=== PATIENT | male | born 1935 | race Two or more races ===

== ENCOUNTER → 2018-12-15 11:49 | Outpatient (CLI) | payer OTHER | END | disposition home or self-care (01) | LOC: LAB 11:49 | DX: Z51.81 Encounter for therapeutic drug level monitoring (principal); R31.0 Gross hematuria ==

== ENCOUNTER 2018-12-15 13:38 | Outpatient (CLI) | payer OTHER | END 2018-12-15 15:52 | disposition home or self-care (01) | LOC: TOM 13:38 | DX: N40.1 Benign prostatic hyperplasia with lower urinary tract symptoms (principal); R31.0 Gross hematuria; F52.21 Male erectile disorder | CPT/HCPCS: 74178; Q9965 ==

== ENCOUNTER 2019-04-20 10:48 | Outpatient (CLI) | payer OTHER | END 2019-04-20 10:52 | disposition home or self-care (01) | LOC: TOM 10:48 | DX: R31.0 Gross hematuria (principal); N20.1 Calculus of ureter; N40.1 Benign prostatic hyperplasia with lower urinary tract symptoms; F52.21 Male erectile disorder ==

== ENCOUNTER 2020-03-07 19:43 | Emergency (ER) | payer OTHER ==
[~2020-03-07] VITALS: Ht 190.5 cm; Wt 112.0 kg
[2020-03-07] MEDS ORDERED: TAMSULOSIN HCL0.4 MG PO (19:53)
[2020-03-07] MEDS ORDERED: FINASTERIDE5 MG PO (19:54)
[2020-03-07] MEDS ORDERED: PRADAXA150 MG PO (19:54)
[2020-03-07] MEDS ORDERED: ROSUVASTATIN CAL5 MG PO (19:54)
[2020-03-07] MEDS ORDERED: BUMETANIDE1 MG PO (19:54)
[2020-03-07] MEDS ORDERED: CRESTOR5 MG PO (19:55)
[2020-03-07] MEDS ORDERED: PRADAXA150 MG (19:56)
== END 2020-03-07 23:06 | disposition home or self-care (01) ==
LOC: ER 19:43
DX: N39.0 Urinary tract infection, site not specified (principal); R31.0 Gross hematuria; N40.1 Benign prostatic hyperplasia with lower urinary tract symptoms; R33.8 Other retention of urine

== ENCOUNTER 2020-03-19 16:19 | Outpatient (CLI) | payer OTHER ==
[~2020-03-19 16:19] MED LIST: BUMETANIDE1 MG PO; CRESTOR5 MG PO; FINASTERIDE5 MG PO; PRADAXA150 MG; PRADAXA150 MG PO; ROSUVASTATIN CAL5 MG PO; TAMSULOSIN HCL0.4 MG PO
== END 2020-03-19 16:30 | disposition home or self-care (01) ==
LOC: LAB 16:19
PROVIDERS: ATTEND Urology
DX: R31.0 Gross hematuria (principal); N20.1 Calculus of ureter; N40.1 Benign prostatic hyperplasia with lower urinary tract symptoms; F52.21 Male erectile disorder

== ENCOUNTER 2020-05-08 12:00 | Emergency (ER) | payer OTHER ==
[~2020-05-08] VITALS: Ht 190.5 cm; Wt 112.0 kg
[2020-05-08] MEDS ORDERED: ULTRAM50 MG PO (14:11)
[2020-05-08] MEDS ORDERED: SKELAXIN800 MG PO (14:11)
[2020-05-08] MEDS ORDERED: DICLOFENAC POTA50 MG PO (14:11)
== END 2020-05-08 14:00 ==
LOC: ER 12:00
DX: M54.5 Low back pain (principal)

== ENCOUNTER 2020-05-15 15:54 | Outpatient (CLI) | payer OTHER ==
[~2020-05-15 15:54] MED LIST changes: +DICLOFENAC POTA50 MG PO; +SKELAXIN800 MG PO; +ULTRAM50 MG PO
== END 2020-05-15 18:00 | disposition home or self-care (01) ==
LOC: LAB 15:54
PROVIDERS: ATTEND Physical Medicine & Rehabilitation
DX: R06.02 Shortness of breath (principal); Z20.828 Contact with and (suspected) exposure to other viral communicable diseases; Z03.818 Encounter for observation for suspected exposure to other biological agents ruled out

== ENCOUNTER → 2020-05-19 11:26 | Outpatient (CLI) | payer OTHER | END | disposition home or self-care (01) | LOC: LAB 11:26 | PROVIDERS: ATTEND Internal Medicine | DX: I11.9 Hypertensive heart disease without heart failure (principal); E78.2 Mixed hyperlipidemia; D63.8 Anemia in other chronic diseases classified elsewhere ==

== ENCOUNTER 2020-06-19 17:14 | Outpatient (CLI) | payer OTHER | END 2020-06-19 17:19 | disposition home or self-care (01) | LOC: LAB 17:14 | PROVIDERS: ATTEND Physical Medicine & Rehabilitation | DX: R05 Cough (principal); Z03.818 Encounter for observation for suspected exposure to other biological agents ruled out; R50.9 Fever, unspecified; R06.1 Stridor ==

== ENCOUNTER 2020-07-27 13:55 | Emergency (ER) | payer OTHER ==
[~2020-07-27] VITALS: Ht 190.5 cm; Wt 110.2 kg
[2020-07-27] MEDS ORDERED: VITAMIN D3-ALO1 EACH PO (17:58)
[2020-07-27] MEDS ORDERED: ACETAMINOPHEN650 M2 PO (17:58)
[2020-07-27] MEDS ORDERED: VITAMIN C WIT1000 MG PO (17:58)
== END 2020-07-27 17:58 | disposition home or self-care (01) ==
LOC: ER 13:55
DX: B34.9 Viral infection, unspecified (principal); R05 Cough; Z20.828 Contact with and (suspected) exposure to other viral communicable diseases

== ENCOUNTER 2020-09-10 15:07 | Emergency (ER) | payer OTHER ==
[~2020-09-10] VITALS: Ht 190.5 cm; Wt 110.2 kg
[~2020-09-10 15:07] MED LIST changes: +ACETAMINOPHEN650 M2 PO; +VITAMIN C WIT1000 MG PO; +VITAMIN D3-ALO1 EACH PO
[2020-09-10] MEDS ORDERED: PRADAXA150 MG PO (15:37)
== END 2020-09-11 00:35 | disposition left against medical advice (07) ==
LOC: ER 15:07
DX: N39.0 Urinary tract infection, site not specified (principal); R31.0 Gross hematuria; R33.8 Other retention of urine; M54.5 Low back pain; B34.9 Viral infection, unspecified; Z20.828 Contact with and (suspected) exposure to other viral communicable diseases; S16.1XXS Strain of muscle, fascia and tendon at neck level, sequela; X58.XXXS Exposure to other specified factors, sequela; A90 Dengue fever [classical dengue]

== ENCOUNTER 2020-10-16 15:31 | Outpatient (CLI) | payer OTHER | END 2020-10-16 15:43 | disposition home or self-care (01) | LOC: SONOGRAMA 15:31 | PROVIDERS: ATTEND Internal Medicine | DX: E04.2 Nontoxic multinodular goiter (principal); E03.8 Other specified hypothyroidism ==

== ENCOUNTER 2020-10-16 16:23 | Outpatient (CLI) | payer OTHER | END 2020-10-16 17:39 | disposition home or self-care (01) | LOC: LAB 16:23 | PROVIDERS: ATTEND Internal Medicine | DX: E03.8 Other specified hypothyroidism (principal) ==

== ENCOUNTER 2020-10-24 07:15 | Outpatient (CLI) | payer OTHER | END 2020-10-24 07:49 | disposition home or self-care (01) | LOC: NUCLEAR 07:15 | PROVIDERS: ATTEND Internal Medicine Cardiovascular Disease | DX: I20.8 Other forms of angina pectoris (principal); I48.20 Chronic atrial fibrillation, unspecified; I10 Essential (primary) hypertension | CPT/HCPCS: 78452; 93017; A9500; J0153 ==

== ENCOUNTER 2020-10-24 13:04 | Outpatient (CLI) | payer OTHER | END 2020-10-24 13:16 | disposition HB | LOC: RAD 13:04 | DX: M17.0 Bilateral primary osteoarthritis of knee (principal) ==

== ENCOUNTER 2020-11-06 15:07 | Outpatient (CLI) | payer OTHER | END 2020-11-06 15:10 | disposition home or self-care (01) | LOC: SONOGRAMA 15:07 | PROVIDERS: ATTEND Specialist | DX: R22.2 Localized swelling, mass and lump, trunk (principal) ==

== ENCOUNTER 2020-12-01 11:22 | Outpatient (CLI) | payer OTHER ==
[2020-12-02] MEDS ORDERED: BUMETANIDE1 MG (12:11)
[2020-12-02] MEDS ORDERED: ZIAC 5-6.25 MG1 EACH (12:11)
[2020-12-02] MEDS ORDERED: PRADAXA150 MG (12:11)
[2020-12-02] MEDS ORDERED: CALTRATE 600 +1 EACH (12:12)
[2020-12-02] MEDS ORDERED: CRESTOR5 MG (12:12)
== END 2020-12-01 11:29 | disposition home or self-care (01) ==
LOC: SONOGRAMA 11:22
PROVIDERS: ATTEND Pathology Anatomic Pathology & Clinical Pathology
DX: M79.89 Other specified soft tissue disorders (principal); R22.2 Localized swelling, mass and lump, trunk

== ENCOUNTER 2020-12-02 11:41 | Emergency (ER) | payer OTHER ==
[~2020-12-02] VITALS: Ht 190.5 cm; Wt 112.5 kg
[2020-12-02] MEDS ORDERED: ZIAC 5-6.25 MG1 EACH (12:11)
[2020-12-02] MEDS ORDERED: BUMETANIDE1 MG (12:11)
[2020-12-02] MEDS ORDERED: PRADAXA150 MG (12:11)
[2020-12-02] MEDS ORDERED: CALTRATE 600 +1 EACH (12:12)
[2020-12-02] MEDS ORDERED: CRESTOR5 MG (12:12)
== END 2020-12-02 18:20 | disposition home or self-care (01) ==
LOC: ER 11:41 → CPU-OBS 11:57 → ER 18:20
DX: R06.02 Shortness of breath (principal); R60.0 Localized edema; I11.0 Hypertensive heart disease with heart failure; I50.9 Heart failure, unspecified; Z03.818 Encounter for observation for suspected exposure to other biological agents ruled out; Z95.0 Presence of cardiac pacemaker

== ENCOUNTER 2021-03-17 08:00 | Outpatient (CLI) | payer OTHER | END 2021-03-17 08:30 | disposition home or self-care (01) | LOC: PPH VACUNA 08:00 | DX: Z23 Encounter for immunization (principal) ==

== ENCOUNTER → 2021-03-17 | Outpatient (CLI) | payer OTHER ==
[~2021-03-17] MED LIST changes: +BUMETANIDE1 MG; +CALTRATE 600 +1 EACH; +CRESTOR5 MG; +ZIAC 5-6.25 MG1 EACH
== END | disposition home or self-care (01) ==
LOC: LAB 08:01
PROVIDERS: ATTEND Urology
DX: N20.0 Calculus of kidney (principal); R31.21 Asymptomatic microscopic hematuria; N40.1 Benign prostatic hyperplasia with lower urinary tract symptoms; F52.21 Male erectile disorder; R97.20 Elevated prostate specific antigen [PSA]; N30.00 Acute cystitis without hematuria; E11.9 Type 2 diabetes mellitus without complications

== ENCOUNTER 2021-03-20 14:24 | Outpatient (CLI) | payer OTHER | END 2021-03-20 14:29 | disposition home or self-care (01) | LOC: SONOGRAMA 14:24 → MAMO-SONO 14:45 | PROVIDERS: ATTEND Urology | DX: R33.8 Other retention of urine (principal); R31.21 Asymptomatic microscopic hematuria; N20.0 Calculus of kidney; N40.1 Benign prostatic hyperplasia with lower urinary tract symptoms; F52.21 Male erectile disorder ==

== ENCOUNTER 2021-04-08 08:00 | Outpatient (CLI) | payer OTHER | END 2021-04-08 08:30 | disposition home or self-care (01) | LOC: PPH VACUNA 08:00 | DX: Z23 Encounter for immunization (principal) ==

== ENCOUNTER 2021-04-23 11:23 | Outpatient (CLI) | payer OTHER | END 2021-04-23 11:24 | disposition home or self-care (01) | LOC: NUCLEAR 11:23 | PROVIDERS: ATTEND Internal Medicine Cardiovascular Disease | DX: I73.9 Peripheral vascular disease, unspecified (principal) ==

== ENCOUNTER 2021-04-24 14:13 | Outpatient (CLI) | payer OTHER | END 2021-04-24 14:14 | disposition home or self-care (01) | LOC: NUCLEAR 14:13 | PROVIDERS: ATTEND Internal Medicine Cardiovascular Disease | DX: I87.2 Venous insufficiency (chronic) (peripheral) (principal) ==

== ENCOUNTER → 2021-05-29 | Outpatient (CLI) | payer OTHER | END | disposition home or self-care (01) | LOC: TOM 16:21 | PROVIDERS: ATTEND Physical Medicine & Rehabilitation | DX: M54.5 Low back pain (principal) ==

== ENCOUNTER 2021-07-16 14:48 | Outpatient (CLI) | payer OTHER | END 2021-07-16 15:14 | disposition home or self-care (01) | LOC: TOM 14:48 | PROVIDERS: ATTEND Psychiatry & Neurology Clinical Neurophysiology | DX: F01.50 Vascular dementia, unspecified severity, without behavioral disturbance, psychotic disturbance, mood disturbance, and anxiety (principal) ==

== ENCOUNTER 2021-08-20 14:44 | Outpatient (CLI) | payer OTHER | END 2021-08-20 14:51 | disposition home or self-care (01) | LOC: LAB 14:44 | PROVIDERS: ATTEND Urology | DX: N20.0 Calculus of kidney (principal); I11.9 Hypertensive heart disease without heart failure; E78.89 Other lipoprotein metabolism disorders; R31.21 Asymptomatic microscopic hematuria; N40.1 Benign prostatic hyperplasia with lower urinary tract symptoms; F52.21 Male erectile disorder ==

== ENCOUNTER 2021-08-21 14:23 | Outpatient (CLI) | payer OTHER | END 2021-08-21 14:31 | disposition home or self-care (01) | LOC: SONOGRAMA 14:23 | PROVIDERS: ATTEND Urology | DX: N20.0 Calculus of kidney (principal); N28.89 Other specified disorders of kidney and ureter; R31.21 Asymptomatic microscopic hematuria; N40.1 Benign prostatic hyperplasia with lower urinary tract symptoms; F52.21 Male erectile disorder ==

== ENCOUNTER 2021-12-15 11:34 | Outpatient (CLI) | payer OTHER | END 2021-12-15 11:41 | disposition home or self-care (01) | LOC: LAB 11:34 | PROVIDERS: ATTEND Urology | DX: Z12.11 Encounter for screening for malignant neoplasm of colon (principal); R31.21 Asymptomatic microscopic hematuria; N20.0 Calculus of kidney; N40.1 Benign prostatic hyperplasia with lower urinary tract symptoms; F52.21 Male erectile disorder; R97.20 Elevated prostate specific antigen [PSA]; R31.1 Benign essential microscopic hematuria ==

== ENCOUNTER 2022-01-15 08:00 | Outpatient (CLI) | payer OTHER | END 2022-01-15 08:30 | disposition home or self-care (01) | LOC: PPH VACUNA 08:00 | PROVIDERS: ATTEND Emergency Medicine Pediatric Emergency Medicine | DX: Z23 Encounter for immunization (principal); Z71.85 Encounter for immunization safety counseling ==

== ENCOUNTER 2022-05-07 16:47 | Emergency (ER) | payer OTHER ==
[~2022-05-07] VITALS: Ht 190.5 cm; Wt 108.9 kg
== END 2022-05-07 20:06 | disposition home or self-care (01) ==
LOC: ER 16:47
DX: L03.113 Cellulitis of right upper limb (principal); I10 Essential (primary) hypertension

== ENCOUNTER 2022-06-04 12:03 | Outpatient (CLI) | payer OTHER | END 2022-06-04 12:04 | disposition home or self-care (01) | LOC: LAB 12:03 | PROVIDERS: ATTEND Internal Medicine Cardiovascular Disease | DX: I11.9 Hypertensive heart disease without heart failure (principal); E78.9 Disorder of lipoprotein metabolism, unspecified ==

== ENCOUNTER 2022-06-07 11:17 | Outpatient (CLI) | payer OTHER | END 2022-06-07 11:20 | disposition home or self-care (01) | LOC: NUCLEAR 11:17 | PROVIDERS: ATTEND Internal Medicine Cardiovascular Disease | DX: I10 Essential (primary) hypertension (principal) ==

== ENCOUNTER → 2022-06-18 13:11 | Outpatient (CLI) | payer OTHER | END | disposition home or self-care (01) | LOC: LAB 13:11 | PROVIDERS: ATTEND Internal Medicine Cardiovascular Disease | DX: I11.9 Hypertensive heart disease without heart failure (principal) ==

== ENCOUNTER 2022-06-18 13:54 | Outpatient (CLI) | payer OTHER | END 2022-06-18 13:56 | disposition home or self-care (01) | LOC: RAD 13:54 | PROVIDERS: ATTEND Internal Medicine Cardiovascular Disease | DX: I10 Essential (primary) hypertension (principal) ==

== ENCOUNTER 2022-06-23 09:20 | Outpatient (CLI) | payer OTHER | END 2022-06-23 09:21 | disposition home or self-care (01) | LOC: NUCLEAR 09:20 | PROVIDERS: ATTEND Podiatrist Foot Surgery | DX: I73.9 Peripheral vascular disease, unspecified (principal) ==

== ENCOUNTER 2022-09-20 10:45 | Outpatient (CLI) | payer OTHER | END 2022-09-20 10:46 | disposition home or self-care (01) | LOC: LAB 10:45 | PROVIDERS: ATTEND Internal Medicine Cardiovascular Disease | DX: I11.9 Hypertensive heart disease without heart failure (principal); E78.1 Pure hyperglyceridemia ==

== ENCOUNTER 2022-12-31 10:42 | Outpatient (CLI) | payer OTHER | END 2022-12-31 10:44 | disposition home or self-care (01) | LOC: NUCLEAR 10:42 | PROVIDERS: ATTEND Internal Medicine Cardiovascular Disease | DX: I50.9 Heart failure, unspecified (principal) ==

== ENCOUNTER 2022-12-31 12:02 | Outpatient (CLI) | payer OTHER | END 2022-12-31 12:03 | disposition home or self-care (01) | LOC: LAB 12:02 | PROVIDERS: ATTEND Internal Medicine Cardiovascular Disease | DX: I11.9 Hypertensive heart disease without heart failure (principal); E32.9 Disease of thymus, unspecified ==

== ENCOUNTER 2022-12-31 12:48 | Outpatient (CLI) | payer OTHER | END 2022-12-31 12:59 | disposition home or self-care (01) | LOC: RAD 12:48 | PROVIDERS: ATTEND Internal Medicine Cardiovascular Disease | DX: I63.9 Cerebral infarction, unspecified (principal); I50.89 Other heart failure ==

== ENCOUNTER 2023-01-05 07:36 | Outpatient (CLI) | payer OTHER | END 2023-01-05 07:37 | disposition home or self-care (01) | LOC: NUCLEAR 07:36 | PROVIDERS: ATTEND Internal Medicine Cardiovascular Disease | DX: I50.9 Heart failure, unspecified (principal) ==

== ENCOUNTER 2023-01-05 08:35 | Outpatient (CLI) | payer OTHER | END 2023-01-05 08:50 | disposition home or self-care (01) | LOC: TOM 08:35 | PROVIDERS: ATTEND Internal Medicine Cardiovascular Disease | DX: R42 Dizziness and giddiness (principal) ==

== ENCOUNTER 2023-01-10 09:17 | Outpatient (CLI) | payer OTHER | END 2023-01-10 09:18 | disposition home or self-care (01) | LOC: NUCLEAR 09:17 | PROVIDERS: ATTEND Internal Medicine Cardiovascular Disease | DX: I50.9 Heart failure, unspecified (principal) ==

== ENCOUNTER 2023-01-12 10:10 | Outpatient (CLI) | payer OTHER | END 2023-01-12 10:12 | disposition home or self-care (01) | LOC: NUCLEAR 10:10 | PROVIDERS: ATTEND Internal Medicine Cardiovascular Disease | DX: I50.9 Heart failure, unspecified (principal) ==

== ENCOUNTER 2023-02-08 15:24 | Outpatient (CLI) | payer OTHER | END 2023-02-08 15:28 | disposition home or self-care (01) | LOC: LAB 15:24 | PROVIDERS: ATTEND Internal Medicine | DX: I11.9 Hypertensive heart disease without heart failure (principal); E78.2 Mixed hyperlipidemia; E11.9 Type 2 diabetes mellitus without complications; E85.9 Amyloidosis, unspecified ==

== ENCOUNTER 2023-10-11 10:33 | Outpatient (CLI) | payer OTHER ==
[2023-10-11 11:23] LABS: HEMATOCRIT 39.2 % (39.0-48.0); HEMOGLOBIN 13.1 g/dL (13-16.00); MEAN CELL VOLUME 92.3 fL (80.0-100.00); MEAN CORPUSCULAR HEMOGLOBIN 30.9 pg (27.00-32.0); MEAN CORPUSCULAR HGB CONC 33.5 g/dl (32.0-36.0); PLATELET COUNT 148 K/uL (150-450); RED BLOOD COUNT 4.24 M/uL (4.00-6.00); RED CELL DISTRIBUTION WIDTH 14.9 % (11.5-14.5)
[2023-10-11 11:30] LABS: URINE APPEARANCE Clear; URINE BILIRRUBIN Negative (NEGATIVE); URINE BLOOD Moderate; URINE COLOR Dark Yellow; URINE GLUCOSE Negative (NEGATIVE); URINE LEUKOCYTE Negative; URINE NITRATE Negative; URINE PROTEIN Negative (NEGATIVE)
[2023-10-11 11:35] LABS: URINE BACTERIA 13.8 uL (0.0-1933); URINE EPITHELIAL CELLS 2.9 uL (0.0-38.8); URINE RBC 35.6 uL (0.0-20.8); URINE WBC 2.1 uL (0.0-23.2)
[2023-10-11 12:31] LABS: ALBUMIN 3.8 gm/dL (3.4-5.0); BILIRUBIN TOTAL 0.79 mg/dL (0.3-1.2); CALCIUM 9.5 mg/dL (8.5-10.1); CHOL HDL RATIO 1.7 (0-5.0); CREATININE SERUM 0.75 mg/dL (0.70-1.30); GFR 98.28; GLOBULINA 2.8 G/DL (2.4-3.5); POTASSIUM 4.06 mEq/L (3.5-5.1); TOTAL PROTEIN 6.6 gm/dL (6.4-8.2)
[2023-10-11 12:34] LABS: TSH 5.89 uIU/mL (0.358-3.74)
== END 2023-10-11 10:43 | disposition home or self-care (01) ==
LOC: LAB 10:33
PROVIDERS: ATTEND Internal Medicine
DX: E11.9 Type 2 diabetes mellitus without complications (principal); E78.9 Disorder of lipoprotein metabolism, unspecified

== ENCOUNTER 2023-11-24 10:22 | Outpatient (CLI) | payer OTHER | END 2023-11-24 10:24 | disposition home or self-care (01) | LOC: NUCLEAR 10:22 | PROVIDERS: ATTEND Internal Medicine Cardiovascular Disease | DX: I50.9 Heart failure, unspecified (principal) ==

== ENCOUNTER 2024-03-21 12:44 | Outpatient (CLI) | payer OTHER ==
[2024-03-21 13:47] LABS: URINE APPEARANCE Clear; URINE BILIRRUBIN Negative (NEGATIVE); URINE BLOOD Small; URINE COLOR Dark Yellow; URINE GLUCOSE Negative (NEGATIVE); URINE LEUKOCYTE Trace; URINE NITRATE Negative; URINE PROTEIN Negative (NEGATIVE)
[2024-03-21 13:48] LABS: HEMATOCRIT 40.4 % (39.0-48.0); HEMOGLOBIN 13.7 g/dL (13-16.00); MEAN CELL VOLUME 90.6 fL (80.0-100.00); MEAN CORPUSCULAR HEMOGLOBIN 30.7 pg (27.00-32.0); MEAN CORPUSCULAR HGB CONC 33.9 g/dl (32.0-36.0); PLATELET COUNT 172 K/uL (150-450); RED BLOOD COUNT 4.46 M/uL (4.00-6.00); RED CELL DISTRIBUTION WIDTH 14.7 % (11.5-14.5)
[2024-03-21 13:51] LABS: URINE BACTERIA 17.6 uL (0.0-1933); URINE RBC 27.3 uL (0.0-20.8); URINE WBC 10.2 uL (0.0-23.2)
[2024-03-21 14:13] LABS: ALBUMIN 3.8 gm/dL (3.4-5.0); BILIRUBIN TOTAL 0.85 mg/dL (0.3-1.2); CALCIUM 9.2 mg/dL (8.5-10.1); CHOL HDL RATIO 2.2 (0-5.0); CREATININE SERUM 0.68 mg/dL (0.70-1.30); GFR 110.05; POTASSIUM 4.53 mEq/L (3.5-5.1); TOTAL PROTEIN 6.8 gm/dL (6.4-8.2)
== END 2024-03-21 12:46 | disposition home or self-care (01) ==
LOC: LAB 12:44
PROVIDERS: ATTEND Internal Medicine Cardiovascular Disease
DX: E11.9 Type 2 diabetes mellitus without complications (principal); I11.9 Hypertensive heart disease without heart failure

== ENCOUNTER → 2024-10-05 | Emergency (ER) | payer OTHER ==
[~2024-10-05] VITALS: Ht 190.5 cm; Wt 108.9 kg
[~2024-10-05] MED LIST changes: +DULOXETINE HCL30 MG PO
== END | disposition left against medical advice (07) ==
LOC: ER 18:12
DX: Z53.21 Procedure and treatment not carried out due to patient leaving prior to being seen by health care provider (principal)

== ENCOUNTER → 2024-10-06 | Emergency (ER) | payer OTHER ==
[~2024-10-06] VITALS: Ht 188 cm; Wt 106.6 kg
== END | disposition home or self-care (01) ==
LOC: ER 16:44
DX: M25.531 Pain in right wrist (principal); Z95.0 Presence of cardiac pacemaker; I49.8 Other specified cardiac arrhythmias

== ENCOUNTER 2025-03-19 13:51 | Outpatient (CLI) | payer OTHER ==
[2025-03-19 15:42] LABS: BASO % 0.5 % (0.1-1.2); EOS # 0.13 (0.04-0.54); EOS % 2.1 % (0.7-7.0); LYMPH # 2.07 (1.18-3.74); LYMPH % 33.1 % (19.3-53.1); MEAN PLATELET VOLUME 10.30 fl (9.4-12.4); MONO # 0.63 (0.24-0.82); MONO % 10.1 % (4.7-12.5); NEUT # 3.37 (1.56-6.13); NEUT % 53.9 % (34.0-71.1); RED CELL DISTRIBUTION WIDTH 14.3 % (11.6-14.4)
[2025-03-19 15:53] LABS: ERYTHROCYTE SEDIMENTATION RATE 30 mm/hr (0-20)
== END 2025-03-19 13:58 | disposition home or self-care (01) ==
LOC: LAB 13:51
PROVIDERS: ATTEND Surgery Surgery of the Hand
DX: M15.0 Primary generalized (osteo)arthritis (principal)

== ENCOUNTER → 2025-04-15 07:23 | Outpatient (CLI) | payer OTHER | END | disposition home or self-care (01) | LOC: NUCLEAR 04-01 07:00 | PROVIDERS: ATTEND Surgery Surgery of the Hand | DX: M15.0 Primary generalized (osteo)arthritis (principal) | CPT/HCPCS: 78315; A9503 ==

== ENCOUNTER 2025-04-15 08:18 | Emergency (ER) | payer OTHER ==
[~2025-04-15] VITALS: Ht 188 cm; Wt 108.9 kg
[2025-04-15] MEDS ORDERED: CEFTRIAXONE SODIUM 1,000 MG VIAL IV ONE (11:15)
== END 2025-04-15 15:04 ==
LOC: ER 08:18
DX: G89.11 Acute pain due to trauma (principal); M25.522 Pain in left elbow; M79.644 Pain in right finger(s); I10 Essential (primary) hypertension
CPT/HCPCS: 73080; 73120; 96365; 99283; J0696